=== PATIENT | female | born 1975 | race Caucasian/White ===

== ENCOUNTER 2017-07-28 08:35 | Emergency (ER) | payer OTHER ==
[~2017-07-28] VITALS: Ht 170.2 cm; Wt 141.5 kg
[2017-07-28] MEDS ORDERED: ALBU18HF2 INH (09:02)
[2017-07-28] MEDS ORDERED: IRON-16 PO (09:02)
[2017-07-28] MEDS ORDERED: HYDR25TA4 PO (09:02)
[2017-07-28] MEDS ORDERED: PIPERACILLIN SODIUM/TAZOBACTAM 3.375 G in IV DEXTROSE 5% 50 ML IV ONE (09:15)
[2017-07-28] MEDS ORDERED: IV NORMAL SALINE 1000 ML BAG IV ONE (09:15)
[2017-07-28] MEDS ORDERED: VANCOMYCIN IV 1,000 MG in IV DEXTROSE 5% 250 ML IV ONE (09:15)
[2017-07-28 09:47] LABS: BASOPHILS # (AUTO) 0.2 K/uL (0.0-8.0); BASOPHILS % (AUTO) 1.7 % (0.0-2.0); EOSINOPHILS # (AUTO) 0.1 K/uL (0.0-0.7); HEMATOCRIT 33.7 % (37-47); HEMOGLOBIN 10.5 G/DL (12.0-16.0); LYMPHOCYTES # (AUTO) 1.4 K/UL (0.8-4.8); LYMPHOCYTES % (AUTO) 14.3 % (20.5-51.5); MEAN CORPUSCULAR HGB CONC 31 g/dL (32.0-37.0); MEAN CORPUSCULAR VOLUME 76.7 FL (81.0-99.0); MONOCYTES # (AUTO) 0.4 K/UL (0.1-1.30); MONOCYTES % (AUTO) 4.2 % (0.0-11.0); NEUTROPHILS # (AUTO) 7.8 K/UL (1.8-8.9); NEUTROPHILS % (AUTO) 78.8 % (38.5-71.5); PLATELET COUNT (AUTO) 394 K/UL (150-450); RED BLOOD CELL COUNT(AUTO) 4.39 MIL/UL (4.2-5.4); WHITE BLOOD COUNT (AUTO) 9.9 K/UL (4.0-11.2)
[2017-07-28] MEDS ORDERED: PIPERACILLIN/TAZOBACTAM/D5W 50 ML IV ONE (09:51)
[2017-07-28] MEDS ORDERED: VANCOMYCIN IV 200 ML ONE (09:51)
[2017-07-28 10:28] LABS: CREATININE 0.9 mg/dL (0.6-1.3); POTASSIUM 3.8 mmol/L (3.5-5.1)
[2017-07-28 10:34] LABS: BILIRUBIN,DIRECT 0.1 mg/dL (0.0-0.2); BILIRUBIN,TOTAL 0.2 mg/dL (0.2-1.0); TOTAL PROTEIN, SERUM 8.4 g/dL (6.4-8.2)
--- NOTE | 2017-07-28 11:48 | NUR ---
Patient discharged to home in stable conditon. Written and verbal after care instructions given. Patient verbalizes understanding of instructions.PT WLKS IN STEADY GAIT, PT NOT DRIVING, UNDERSTAND SHE NEEDS TO COME BACK IF NOT IMPROVED IN 3 DAYS
[2017-07-28 11:56] VITALS: BP 139/71
--- NOTE | 2017-07-28 11:58 | NUR ---
Patient given written and verbal discharge instructions. Patient verbalizes understanding of instructions. Patient is ambulatory with steady gait. Refuses offer of detention placement. Patient given list of available shelters in surrounding area.
== END 2017-07-28 11:59 | disposition home or self-care (01) ==
LOC: ER 08:35
DX: L03.114 Cellulitis of left upper limb (principal); L03.113 Cellulitis of right upper limb; F17.200 Nicotine dependence, unspecified, uncomplicated; Z59.0 Homelessness; I10 Essential (primary) hypertension; J45.909 Unspecified asthma, uncomplicated; E11.9 Type 2 diabetes mellitus without complications
CPT/HCPCS: 36415; 70030-TC; 71010; 83605; 85025; 85730; 87040; 93005; A4663; J2543; J3370; J7030

== ENCOUNTER 2018-09-05 20:58 | Emergency (ER) | payer OTHER ==
[~2018-09-05] VITALS: Ht 162.6 cm; Wt 95.3 kg
[~2018-09-05 20:58] MED LIST: ALBU18HF2 INH; HYDR25TA4 PO; IRON-16 PO
[2018-09-05] MEDS ORDERED: IPRATROPIUM BROMIDE 0.5 MG/2.5 ML NEBU NEB ONE (21:00)
[2018-09-05] MEDS ORDERED: ALBUTEROL SULFATE 2.5 MG/3 ML NEBU NEB ONE (21:00)
[2018-09-05] MEDS ORDERED: predniSONE 10 MG TABLET PO ONE (21:00)
--- NOTE | 2018-09-05 21:00 | NUR ---
RECEIVED PATIENT FROM AMBULANCE WITH C/O SOB AND CHEST PAIN X 2 DAYS. PATIENT WITH HX OF ASTHMA, TOOK ALBUTEROL BUT NOT HELPING, PATIENT PLACED ON MONITOR, SINUS TACH NOTED, BP ELEVATED, LUNGS WITH EXPIRATORY WHEEZING. EKG DONE, ER DR AT BEDSIDE.
[2018-09-05] MEDS ORDERED: predniSONE 20 MG TABLET ONE (21:08)
[2018-09-05] MEDS ORDERED: QUET25TA (21:11)
[2018-09-05] MEDS ORDERED: LORAZEPAM 1 MG TABLET ONE (21:13)
[2018-09-05] MEDS ORDERED: LORAZEPAM 0.5 MG TABLET PO ONE (21:15)
--- NOTE | 2018-09-05 21:15 | NUR ---
MEDICATED ORDERED, WAITING FOR RESPIRATORY TREATMENT.
[2018-09-05] MEDS ORDERED: ALBUTEROL SULFATE 2.5 MG/3 ML NEBU ONE (21:26)
--- NOTE | 2018-09-05 21:37 | NUR ---
RESPIRATORY TREATMENT IN PROGRESS.
[2018-09-05 21:55] VITALS: BP 148/89
== END 2018-09-05 21:58 | disposition home or self-care (01) ==
LOC: ER 21:00
DX: J45.909 Unspecified asthma, uncomplicated (principal); F43.9 Reaction to severe stress, unspecified; F15.10 Other stimulant abuse, uncomplicated; I11.0 Hypertensive heart disease with heart failure; I50.9 Heart failure, unspecified; E11.9 Type 2 diabetes mellitus without complications; F17.200 Nicotine dependence, unspecified, uncomplicated; Z91.013 Allergy to seafood; Z59.0 Homelessness
CPT/HCPCS: 93005; 94640; 99283; J7512; A4663